=== PATIENT | male | born 1975 | race African-American/Black ===

== ENCOUNTER 2017-04-15 00:03 | Emergency (ER) | payer OTHER ==
[2017-04-15 00:22] VITALS: BP 157/106; BMI 29.8
[2017-04-15] MEDS ORDERED: PHENERGAN INJ 25 MG IM ONE (00:48)
[2017-04-15] MEDS ORDERED: TORADOL 60 MG VIAL IM ONE (00:48)
--- NOTE | 2017-04-15 00:55 | DR.GENAD ---
HPI - PCP Primary Care Physician: NFD - Complaint/Symptoms Chief Complaint Doctors Comments: Patient states he has been having epigastric and LUQ and RUQ pain for the past 2-3 weeks. State he has been taking Gas-X without improvement. States the pain is 10 of 10. States the pain is worst when he move and bend. States he was told when he had his appendix out that he may have gallstones and he think his gallbladder is acting up> He denies fever , chills, nausea, vomiting, cold or cough. States the pain is upper abdomen that radiates to his back at times on the left and then on the right side. He denies any recent trauma. States he is a patient of Dr. Frias but he has not seen him in a while. Chief Complaint:: "I have just been having a lot of stomach pain that feels like it starts in the front and goes around my ribs and sometimes it goes around to the back. They have said in the past that they think it could be my gallbladder." - Nurses notes reviewed Nurses Notes Review: Yes - Source History Provided: Patient - Mode of Arrival Mode of Arrival: Ambulatory - Timing Onset of Chief Complaint: 04/08/17 Came on: Gradually - Duration Duration: Intermittent How lon Duration: Weeks - Location Location: RUQ and LUQ pain - Severity Severity: Moderate, Severe - Modifying Factors Worsens:: movement Improves:: nothing PMH - PMH Past Medical History: Yes Past Medical History: Diabetes, Hypertension Past Surgical History: Yes Surgical History: Appendectomy - Family History History of Family Medical Conditions: Yes Family Medical History: Diabetes Mellitus, Cancer, Hypertension - Social History Does patient currently use any type of tobacco product: No Have you used tobacco products in the last 12 months: No Type of Tobacco Use: None Does any household member use tobacco: No Alcohol Use: None Do you use any recreational Drugs:: No Lives With: Spouse Lives Where: Home - infectious screening In the last 2 months have you had wt loss of >10#?: NO Have you had fever, night sweats or hemotysis?: No Have you traveled outside the country in the last 6 months?: No Isolation: Standard ROS - Review of Systems Constitutional: No Symptoms Reported. negative: See HPI, Chills, Diaphoresis, Fever, Malaise, Weakness, Irritable, Fatigue, Loss of Appetite, Other Eyes: No Symptoms Reported ENTM: No Symptoms Reported, Nose Discharge, Nose Congestion Respiratoy: No Symptoms Reported. negative: See HPI, Productive Cough, Non- Productive Cough, Moist Cough, Dry Cough, Hacking Cough, Barking Cough, Brassy Cough, Orthopnea, Short of Breath, Stridor, Wheezing, Hemoptysis, Other Cardiovascular: No Symptoms Reported. negative: See HPI, Chest Pain, Edema, Palpitations, Syncope, Cyanosis, Skin Mottling, Other Gastrointestinal/Abdominal: No Symptoms Reported, Abdominal Pain (upper epigastric and hypogastric tenderness), Nausea. negative: See HPI, Constipation , Diarrhea, Vomiting, Food Intolerance, Other Genitourinary: No Symptoms Reported Neurological: No Symptoms Reported Musculoskeletal: No Symptoms Reported Integumentary: No Symptoms Reported Hematologic/Lymphatic: No Symptoms Reported Endocrine: No Symptoms Reported Psychiatric: No Symptoms Reported PE - Vital Signs Vitals: Temperature 98.2 F Pulse Rate 93 Respiratory Rate 18 Blood Pressure [Left Arm] 120/90 Blood Pressure [Right Arm] 114/74 Blood Pressure 157/106 O2 Sat by Pulse Oximetry 98 - General Limitations: No Limitations General Appearance: Alert, In Distress (moderate), Obese - Head Head Exam: Normal Inspection, Atraumatic, Normocephalic - Eyes Eye exam: Normal Appearance, PERRL, EOMI. negative: Scleral Icterus, Conjunctival Injection, Nystagmus, Miosis, Mydrasis, Periorbital Swelling, Periorbital Tenderness, Other - ENT ENT Exam: Normal Exam, Normal Oropharynx, Normal External Ear Exam, Mucous Membranes Moist, TM's Normal Bilaterally External Ear Exam: Normal External Inspection TM/Canal Exam: Bilateral Normal Nose Exam: Normal Nose Exam Mouth Exam: Normal Inspection Throat Exam: Normal Inspection. negative: Tonsillar Erythema, Tonsillomegaly, Tonsillar Exudate, R Peritonsillar Mass, L Peritonsillar Mass, Muffled Voice, Other - Neck Neck Exam: Normal Inspection, Full ROM, Trachea Midline. negative: Tenderness, Meningismus, Lymphadenopathy, Thyromegaly, Other - Chest Chest Inspection: Normal Inspection, Symmetric Chest Wall Rise. negative: Tenderness, Rash, Abscess, Other - Respiratory Respiratory Exam: Normal Lung Sounds Bilat Respiratory Exam: Bilateral Clear to Auscultation - Cardiovascular Cardiovascular Exam: Regular Rate, Normal Rhythm, Normal Heart Sounds. negative : Bradycardia, Tachycardia, Irregular Rhythm, Systolic Murmur, Diastolic Murmur , Rubs, Gallop, Clicks, JVD, +S1, +S2, +S3, +S4, Other - Abdominal Exam Abdominal Exam: Normal Inspection, Normal Bowel Sounds, Soft, Tenderness ( epigastric; lUQ and RUQ tenderness) Abdominal Tenderness: RUQ, LUQ, Epigastrium, Suprapubic, Moderate - Extremities Extremities Exam: Normal Inspection, Full ROM, Normal Capillary Refill. negative: Tenderness, Edema, Joint Swelling, Calf Tenderness, Other - Back Back Exam: Normal Inspection, Full ROM. negative: Tenderness, (R) CVA Tenderness, (L) CVA Tenderness, Muscle Spasm, Paraspinal Tenderness, Vertebral Tenderness, Rashes, (R) Sciatic Notch Tenderness, (L) Sciatic Notch Tendern, (R ) Straight Leg Raise, (L) Straight Leg Raise, Other - Neurologic Neurological Exam: Alert, Oriented X3, CN II-XII Intact, Normal Gait, Reflexes Normal - Psychiatric Psychiatric Exam: Normal Affect, Normal Mood. negative: Depressed, Agitated, Anxious, Flat Affect, Manic, Homicidal Ideation, Suicidal Ideation, Other - Skin Skin Exam: Warm, Dry, Intact, Normal Color ROR - Labs Reviewed Laboratory Results Reviewed?: Yes (all labs and x-ray results reviewed and discussed with patient and spouse) Result Diagrams: 04/15/17 01:00 04/15/17 01:00 Laboratory: WBC 6.5 X10^3/uL (3.6-10.0) 04/15/17 01:00 RBC 3.86 X10^6/uL (4.7-6.0) L 04/15/17 01:00 Hgb 11.7 g/dL (13.5-18.0) L 04/15/17 01:00 Hct 34.1 % (42.0-54.0) L 04/15/17 01:00 MCV 88.3 fL (80.0-100.0) 04/15/17 01:00 MCH 30.2 pg (27.0-34.0) 04/15/17 01:00 MCHC 34.2 g/dL (33.0-35.0) 04/15/17 01:00 RDW 12.7 % (11.6-16.5) 04/15/17 01:00 Plt Count 259 X10^3/uL (150.0-450.0) 04/15/17 01:00 MPV 8.2 fL (7.4-11.0) 04/15/17 01:00 Neut % 35.3 % (42.0-75.0) L 04/15/17 01:00 Lymph % 51.9 % (21.0-51.0) H 04/15/17 01:00 [place] % 9.8 % (0.0-13.0) 04/15/17 01:00 Eos % 1.7 % (0.9-2.9) 04/15/17 01:00 Baso % 1.3 % (0.2-1.0) H 04/15/17 01:00 Neut # 2.3 x10^3/uL (2.2-4.8) 04/15/17 01:00 Lymph # 3.3 X10^3/uL (1.3-2.9) H 04/15/17 01:00 [place] # 0.6 x10^3/uL (0.3-0.8) 04/15/17 01:00 Eos # 0.1 x10^3/uL (0.0-0.2) 04/15/17 01:00 Baso # 0.1 X10^3/uL (0.0-0.1) 04/15/17 01:00 Absolute Nucleated RBC 0.1 /100WBC 04/15/17 01:00 Sodium 139 mmol/L (136-145) 04/15/17 01:00 Corrected Sodium 141 mmol/L (136-145) 04/15/17 01:00 Potassium 3.8 mmol/L (3.5-5.1) 04/15/17 01:00 Chloride 103 mmol/L (98-107) 04/15/17 01:00 Carbon Dioxide 29.8 mmol/L (21-32) 04/15/17 01:00 BUN 15 mg/dL (7-18) 04/15/17 01:00 Creatinine 0.69 mg/dL (0.70-1.30) L 04/15/17 01:00 Est GFR (MDRD) Af Amer > 60 (>60) 04/15/17 01:00 Est GFR (MDRD) Non-Af > 60 (>60) 04/15/17 01:00 Glucose 196 mg/dL (65-99) H 04/15/17 01:00 Calcium 8.7 mg/dL (8.5-10.1) 04/15/17 01:00 Corrected Calcium 9.4 mg/dL (8.5-10.1) 04/15/17 01:00 Total Bilirubin 0.40 mg/dL (0.2-1.0) 04/15/17 01:00 AST 13 Units/L (15-37) L 04/15/17 01:00 ALT 13 Units/L (12-78) 04/15/17 01:00 Alkaline Phosphatase 60 Units/L (46-116) 04/15/17 01:00 Total Protein 6.9 g/dL (6.4-8.2) 04/15/17 01:00 Albumin 3.1 g/dL (3.4-5.0) L 04/15/17 01:00 Globulin 3.8 g/dL (2.5-4.5) 04/15/17 01:00 Albumin/Globulin Ratio 0.8 Ratio (1.1-2.1) L 04/15/17 01:00 Amylase 62 Units/L (25-115) 04/15/17 01:00 Lipase 202 Units/L (73-393) 04/15/17 01:00 H. pylori IgG Antibody Negative (NEGATIVE) 04/15/17 01:00 - XRAY XRAY Interpreted by: Radiologist (CT abdomen: No aggressive osseous lesions.) - Diagnosis Discharge Problem: Dyspepsia, Hypertension Abdominal pain Qualifiers: Abdominal location: generalized Qualified Code(s): R10.84 - Generalized abdominal pain Constipation Qualifiers: Constipation type: chronic idiopathic constipation Qualified Code(s): K59.04 - Chronic idiopathic constipation Diabetes mellitus Qualifiers: Diabetes mellitus type: type 2 - Discharge Plan Disposition: HOME, SELF-CARE Condition: Stable Prescriptions: Bisacodyl EC [DULCOLAX TAB EC 5 MG *] 5 mg PO HS PRN #25 tab.ec PRN Reason: Constipation Lactulose Syrup [CHRONULAC SYRUP *] 30 ml PO BID PRN #473 ml PRN Reason: Omeprazole [PRILOSEC 20 MG *] 20 mg PO DAILY #30 cap Ranitidine HCl [ZANTAC TAB 150 MG *] 150 mg PO BID #60 tab - Follow ups/Referrals Follow ups/Referrals: NFD,None [Primary Care Provider] - 3 days CHRISTELLE FRIAS [STAFF PHYSICIAN] - 3 days - Instructions Instructions: Abdominal Pain, Adult, [id number], Gastritis, Adult, Constipation, Adult, Hypertension, [id number], Type 2 Diabetes Mellitus, Adult
[2017-04-15 01:12] LABS: BASOPHILS # (AUTO) 0.1 X10^3/uL (0.0-0.1); BASOPHILS % (AUTO) 1.3 % (0.2-1.0); EOSINOPHILS # (AUTO) 0.1 x10^3/uL (0.0-0.2); EOSINOPHILS % (AUTO) 1.7 % (0.9-2.9); HEMATOCRIT 34.1 % (42.0-54.0); HEMOGLOBIN 11.7 g/dL (13.5-18.0); LYMPHOCYTES # (AUTO) 3.3 X10^3/uL (1.3-2.9); LYMPHOCYTES % (AUTO) 51.9 % (21.0-51.0); MEAN CORPUSCULAR HEMOGLOBIN 30.2 pg (27.0-34.0); MEAN CORPUSCULAR HGB CONC 34.2 g/dL (33.0-35.0); MEAN CORPUSCULAR VOLUME 88.3 fL (80.0-100.0); MEAN PLATELET VOLUME 8.2 fL (7.4-11.0); MONOCYTES # (AUTO) 0.6 x10^3/uL (0.3-0.8); MONOCYTES % (AUTO) 9.8 % (0.0-13.0); NEUTROPHILS # (AUTO) 2.3 x10^3/uL (2.2-4.8); NEUTROPHILS % (AUTO) 35.3 % (42.0-75.0); PLATELET COUNT 259 X10^3/uL (150.0-450.0); RED BLOOD COUNT 3.86 X10^6/uL (4.7-6.0); RED CELL DISTRIBUTION WIDTH 12.7 % (11.6-16.5); WHITE BLOOD COUNT 6.5 X10^3/uL (3.6-10.0)
[2017-04-15 01:26] LABS: ALANINE AMINOTRANSFERASE 13 Units/L (12-78); ALBUMIN 3.1 g/dL (3.4-5.0); ALKALINE PHOSPHATASE 60 Units/L (46-116); AMYLASE 62 Units/L (25-115); ASPARTATE AMINO TRANSFERASE 13 Units/L (15-37); BLOOD UREA NITROGEN 15 mg/dL (7-18); CALCIUM 8.7 mg/dL (8.5-10.1); CARBON DIOXIDE 29.8 mmol/L (21-32); CHLORIDE 103 mmol/L (98-107); COR CA(FOR HYPOALB) 9.4 mg/dL (8.5-10.1); COR NA(FOR HYPERGLY) 141 mmol/L (136-145); CREATININE 0.69 mg/dL (0.70-1.30); GLUCOSE 196 mg/dL (65-99); LIPASE 202 Units/L (73-393); SODIUM 139 mmol/L (136-145); TOTAL PROTEIN 6.9 g/dL (6.4-8.2); eGFR BLACK RACES > 60 (>60); eGFR NON BLACK RACES > 60 (>60)
--- NOTE | 2017-04-15 01:27 | CT ---
CT abdomen and pelvis without contrast Indication: Abdominal pain Comparison: 09/27/2016 Technique: CT images of the abdomen and pelvis were obtained without contrast. Automatic exposure co ntrol was utilized. Findings: No aggressive osseous lesions. The lung bases are clear. Within the limitations of a noncontrast study, the liver, gallbladder, spleen, stomach, duodenum, pa ncreas, adrenals, and kidneys are unremarkable. No significant bowel thickening or dilatation of the lower GI tract is identified. The appendix is surgically absent. The urinary bladder, prostate, and rectum are unremarkable. No free fluid or adenopathy identified. Impression: No source for patient's symptoms identified. Reported By:
[2017-04-15] MEDS ORDERED: PHENERGAN INJ 25 MG ONE (01:32)
[2017-04-15] MEDS ORDERED: TORADOL 60 MG VIAL ONE (01:32)
[2017-04-15] MEDS ORDERED: CHRONULAC PO STA (01:45)
[2017-04-15] MEDS ORDERED: DULCOLAX TAB EC 5 MG PO ONE (01:45)
[2017-04-15] MEDS ORDERED: CHRONULAC ONE (02:13)
== END 2017-04-15 02:33 | disposition home or self-care (01) ==
LOC: ER 00:03
DX: R10.13 Epigastric pain (principal); I10 Essential (primary) hypertension; R10.84 Generalized abdominal pain; K59.04 Chronic idiopathic constipation
CPT/HCPCS: 36415; 74176; 80053; 82150; 83690; 85025; 86677; 96372; 99283; J1885; J2550

== ENCOUNTER 2017-05-27 15:26 | Emergency (ER) | payer OTHER ==
[2017-05-27 15:42] VITALS: BP 166/101; BMI 30.7
[2017-05-27 17:02] LABS: BASOPHILS # (AUTO) 0.1 X10^3/uL (0.0-0.1); BASOPHILS % (AUTO) 1.2 % (0.2-1.0); EOSINOPHILS # (AUTO) 0.1 x10^3/uL (0.0-0.2); EOSINOPHILS % (AUTO) 1.5 % (0.9-2.9); HEMATOCRIT 36.8 % (42.0-54.0); HEMOGLOBIN 12.7 g/dL (13.5-18.0); LYMPHOCYTES # (AUTO) 2.4 X10^3/uL (1.3-2.9); LYMPHOCYTES % (AUTO) 32.5 % (21.0-51.0); MEAN CORPUSCULAR HEMOGLOBIN 30.6 pg (27.0-34.0); MEAN CORPUSCULAR HGB CONC 34.3 g/dL (33.0-35.0); MEAN CORPUSCULAR VOLUME 89.1 fL (80.0-100.0); MEAN PLATELET VOLUME 8.5 fL (7.4-11.0); MONOCYTES # (AUTO) 0.5 x10^3/uL (0.3-0.8); NEUTROPHILS # (AUTO) 4.3 x10^3/uL (2.2-4.8); NEUTROPHILS % (AUTO) 57.8 % (42.0-75.0); PLATELET COUNT 249 X10^3/uL (150.0-450.0); RED BLOOD COUNT 4.14 X10^6/uL (4.7-6.0); RED CELL DISTRIBUTION WIDTH 12.3 % (11.6-16.5); WHITE BLOOD COUNT 7.4 X10^3/uL (3.6-10.0)
[2017-05-27 17:13] LABS: ALANINE AMINOTRANSFERASE 11 Units/L (12-78); ALBUMIN 3.1 g/dL (3.4-5.0); ALKALINE PHOSPHATASE 84 Units/L (46-116); ASPARTATE AMINO TRANSFERASE 14 Units/L (15-37); BLOOD UREA NITROGEN 11 mg/dL (7-18); CALCIUM 8.6 mg/dL (8.5-10.1); CHLORIDE 103 mmol/L (98-107); COR CA(FOR HYPOALB) 9.3 mg/dL (8.5-10.1); COR NA(FOR HYPERGLY) 144 mmol/L (136-145); GLUCOSE 211 mg/dL (65-99); SODIUM 141 mmol/L (136-145); TOTAL PROTEIN 7.8 g/dL (6.4-8.2); eGFR BLACK RACES > 60 (>60); eGFR NON BLACK RACES > 60 (>60)
--- NOTE | 2017-05-27 17:33 | DR.EXTPAIN ---
HPI - Time seen Time seen: 17:30 - PCP Primary Care Physician: MILO - HPI Comment HPI Comment: HISTORY BELOW. - Complaint/Symptoms Chief Complaint Doctor Comments: RIGHT KNEE ULCER THAT IS INFECTED. PATIENT SAID IT STARTED 8 DAYS AGO. NO DRAINGE. SOME YELLOW TISSUE VISIBLE AND TENDER. INCREASE TEMPERATURE IN THE AREA. NO STREAKING. Chief Complaint:: PT C/O RIGHT KNEE PAIN THAT RADIATES UP TO HIS RIGHT THIGH.... PT HAD A SORE TO HIS RIGHT KNEE THAT HAS NO ODOR OR DRAINAGE YELLOW SLOTH NOTED .. Self Treatment fo Chief Complaint: [place] [employer] LAST 2 DAYS,,,,, - Nurses notes reviewed Nurses Notes Review: Yes - Source History Provided: Patient - Mode of arrival Mode of Arrival: Ambulatory - Timing Onset of Chief Complaint: 05/20/17 - Context History of: None - Associated signs and symptoms Associated Signs and Symptoms: Pain PMH - PMH Past Medical History: Yes Past Medical History: Diabetes, Hypertension Past Surgical History: Yes Surgical History: Appendectomy - Family History History of Family Medical Conditions: Yes Family Medical History: Diabetes Mellitus, Cancer, Hypertension - Social History Does patient currently use any type of tobacco product: No Have you used tobacco products in the last 12 months: No Type of Tobacco Use: None Does any household member use tobacco: No Alcohol Use: None Do you use any recreational Drugs:: No Lives With: Family Lives Where: Home - infectious screening In the last 2 months have you had wt loss of >10#?: NO Have you had fever, night sweats or hemotysis?: No Have you traveled outside the country in the last 6 months?: No Isolation: Standard ROS - Review of Systems Constitutional: No Symptoms Reported. negative: Chills, Fever, Weakness, Fatigue Eyes: No Symptoms Reported. negative: Eye Pain, Discharge ENTM: No Symptoms Reported. negative: Ear Pain, Nose Discharge, Nose Congestion , Throat Pain Respiratoy: No Symptoms Reported. negative: Productive Cough, Non-Productive Cough, Short of Breath, Wheezing, Hemoptysis Cardiovascular: No Symptoms Reported. negative: Chest Pain, Edema Gastrointestinal/Abdominal: No Symptoms Reported. negative: Abdominal Pain, Diarrhea, Nausea, Vomiting Genitourinary: No Symptoms Reported. negative: Dysuria, Frequency, Hematuria Neurological: No Symptoms Reported. negative: Headache, Weakness, Dizziness Musculoskeletal: Joint Pain, Muscle Pain Integumentary: Other (RIGHT ANTERIOR KNEE HAVE ULCER WITH EXPOSE YELLOW TISSUE. NO DRAINAGE.) Hematologic/Lymphatic: No Symptoms Reported Endocrine: No Symptoms Reported. negative: Flushing, Increased Thirst, Increased Urine All Other Systems: Reviewed and Negative PE - Vital Signs Vitals: Temperature 98.6 F Pulse Rate 108 Respiratory Rate 18 Blood Pressure [Left Arm] 120/90 Blood Pressure [Right Arm] 114/74 Blood Pressure 166/101 O2 Sat by Pulse Oximetry 98 - General Limitations: No Limitations General Appearance: Alert - Head Head Exam: Normal Inspection - Eyes Eye exam: Normal Appearance - ENT ENT Exam: Normal External Ear Exam - Neck Neck Exam: Normal Inspection - Chest Chest Inspection: Symmetric Chest Wall Rise - Respiratory Respiratory Exam: Normal Lung Sounds Bilat Respiratory Exam: Bilateral Clear to Auscultation - Cardiovascular Cardiovascular Exam: Regular Rate, Normal Rhythm, Normal Heart Sounds - Abdominal Exam Abdominal Exam: Normal Bowel Sounds, Soft. negative: Tenderness - Extremities Extremities Exam: Tenderness (RIFGT KNEE WITH ULCER.) - Lower Extremities Gait Exam: Observed and Normal - Back Back Exam: Normal Inspection - Neurological Neurological Exam: Alert, Oriented X3 - Psychiatric Psychiatric Exam: Normal Affect, Normal Mood - Skin Type of Lesion: Other (ULCER RT KNEE.) MDM - Differential Diagnosis Differential Diagnosis: Other (INFECTED ULCER RT KNEE.) Course - Treatment Treatment: SEE ORDERS. - Education/Counseling Education/Counseling: Patient, Family, Education Educated On: Diagnosis, Needs for Follow Up ROR - Labs Reviewed Laboratory Results Reviewed?: Yes Result Diagrams: 05/27/17 16:54 05/27/17 16:54 Laboratory: WBC 7.4 X10^3/uL (3.6-10.0) 05/27/17 16:54 RBC 4.14 X10^6/uL (4.7-6.0) L 05/27/17 16:54 Hgb 12.7 g/dL (13.5-18.0) L 05/27/17 16:54 Hct 36.8 % (42.0-54.0) L 05/27/17 16:54 MCV 89.1 fL (80.0-100.0) 05/27/17 16:54 MCH 30.6 pg (27.0-34.0) 05/27/17 16:54 MCHC 34.3 g/dL (33.0-35.0) 05/27/17 16:54 RDW 12.3 % (11.6-16.5) 05/27/17 16:54 Plt Count 249 X10^3/uL (150.0-450.0) 05/27/17 16:54 MPV 8.5 fL (7.4-11.0) 05/27/17 16:54 Neut % 57.8 % (42.0-75.0) 05/27/17 16:54 Lymph % 32.5 % (21.0-51.0) 05/27/17 16:54 [place] % 7.0 % (0.0-13.0) 05/27/17 16:54 Eos % 1.5 % (0.9-2.9) 05/27/17 16:54 Baso % 1.2 % (0.2-1.0) H 05/27/17 16:54 Neut # 4.3 x10^3/uL (2.2-4.8) 05/27/17 16:54 Lymph # 2.4 X10^3/uL (1.3-2.9) 05/27/17 16:54 [place] # 0.5 x10^3/uL (0.3-0.8) 05/27/17 16:54 Eos # 0.1 x10^3/uL (0.0-0.2) 05/27/17 16:54 Baso # 0.1 X10^3/uL (0.0-0.1) 05/27/17 16:54 Absolute Nucleated RBC 0.1 /100WBC 05/27/17 16:54 Sodium 141 mmol/L (136-145) 05/27/17 16:54 Corrected Sodium 144 mmol/L (136-145) 05/27/17 16:54 Potassium 3.8 mmol/L (3.5-5.1) 05/27/17 16:54 Chloride 103 mmol/L (98-107) 05/27/17 16:54 Carbon Dioxide 32.0 mmol/L (21-32) 05/27/17 16:54 BUN 11 mg/dL (7-18) 05/27/17 16:54 Creatinine 0.70 mg/dL (0.70-1.30) 05/27/17 16:54 Est GFR (MDRD) Af Amer > 60 (>60) 05/27/17 16:54 Est GFR (MDRD) Non-Af > 60 (>60) 05/27/17 16:54 Glucose 211 mg/dL (65-99) H 05/27/17 16:54 Calcium 8.6 mg/dL (8.5-10.1) 05/27/17 16:54 Corrected Calcium 9.3 mg/dL (8.5-10.1) 05/27/17 16:54 Total Bilirubin 0.70 mg/dL (0.2-1.0) 05/27/17 16:54 AST 14 Units/L (15-37) L 05/27/17 16:54 ALT 11 Units/L (12-78) L 05/27/17 16:54 Alkaline Phosphatase 84 Units/L (46-116) 05/27/17 16:54 C-Reactive Protein 15.50 mg/L (0-3.0) H 05/27/17 16:54 Total Protein 7.8 g/dL (6.4-8.2) 05/27/17 16:54 Albumin 3.1 g/dL (3.4-5.0) L 05/27/17 16:54 Globulin 4.7 g/dL (2.5-4.5) H 05/27/17 16:54 Albumin/Globulin Ratio 0.7 Ratio (1.1-2.1) L 05/27/17 16:54 Acetone, Semi-Quant Negative (NEGATIVE) 05/27/17 16:54 - XRAY XRAY Interpreted by: Radiologist XRAY Findings: REPORT DISCUSS WITH PATIENT. - Diagnosis Discharge Problem: Infected wound, Infected ulcer of skin - Discharge Plan Disposition: 01 HOME, SELF-CARE Condition: Stable Prescriptions: Ibuprofen [MOTRIN TAB 600 MG *] 600 mg PO TID PRN #20 tab PRN Reason: Pain/Inflammation Sulfamethoxazole-Trimethoprim [BACTRIM DS TAB 800/160 MG *] 1 tab PO BID #20 tab - Follow ups/Referrals Follow ups/Referrals: NFD,None [Primary Care Provider] - 2 days ANTONIO SPICER [STAFF PHYSICIAN] - 3 days - Instructions Instructions: Wound Infection, [id number], Knee Pain, [id number] Additional Instructions: RETURN TO ED IF WORSE.
[2017-05-27] MEDS ORDERED: BACTRIM DS TAB PO ONE (18:32)
[2017-05-27] MEDS ORDERED: TORADOL TAB PO ONE (18:32)
[2017-05-27] MEDS ORDERED: BACITRACIN ZINC ONE (18:37)
[2017-05-27] MEDS: BACTRIM DS TAB PO ONE (18:41)
[2017-05-27] MEDS: TORADOL TAB PO ONE (18:41)
--- NOTE | 2017-05-27 19:09 | RAD ---
HISTORY: Right knee pain. Complete series of the right knee joint. Comparisons: none. Findings: Examination of the right knee demonstrate no evidence for acute fracture, subluxation, or dislocatio n. The medial and lateral tibiofemoral compartments demonstrate mild joint space narrowing and tania inal osteophyte formation. The findings are compatible with mild degenerative joint disease. The l ateral radiograph shows a small right knee joint effusion. Patellofemoral compartment shows mild DJ D and moderate chondromalacia patella. IMPRESSION: Diffuse periarticular edema with a small right knee joint effusion and diffuse prepatell ar edema. These findings can be seen with cellulitis or nonspecific edema. Please correlate. No radi ographic evidence for osteomyelitis or acute fracture. Mild tricompartmental knee joint osteoarthritis, most severe in the medial compartment. Reported By:
== END 2017-05-27 18:42 | disposition home or self-care (01) ==
LOC: ER 15:26
DX: L08.89 Other specified local infections of the skin and subcutaneous tissue (principal); T81.4XXA Infection following a procedure, initial encounter
CPT/HCPCS: 36415; 73564; 80053; 82009; 85025; 86140; 99282; 99283